=== PATIENT | female | born 1950 | race Caucasian/White ===

== ENCOUNTER → 2018-05-24 10:20 | Outpatient (CLI) | payer MEDICARE, OTHER, SELFPAY ==
--- NOTE | 2018-05-24 10:24 | MM_ITS ---
MM Dig screening mamm BI w/CAD CAD Screening COMPARISON: Digital mammograms with CAD 02/24/2017 and 02/05/2016 INDICATION: There is no personal or family history of breast cancer TECHNIQUE: Standard CC and MLO images were obtained. R2 CAD reviewed. FINDINGS: The breasts are composed primarily of fat with very minimal scattered fibroglandular densities in each breast. A few scattered benign-appearing calcifications in each breast. There is no suspicious lesion and no suspicious microcalcifications. IMPRESSION: Low density fatty breast parenchyma with no suspicious lesion seen BI-RADS Category: 2 Benign Finding(s) RECOMMENDED FOLLOW-UP: 1YR - 1 YEAR FOLLOW-UP (A letter has been sent to the patient regarding results of the study.)
== END ==
PROVIDERS: Family Provider Nurse Practitioner Family; PCP Nurse Practitioner Family; Visit Provider Nurse Practitioner Family
DX: Z12.31 Encounter for screening mammogram for malignant neoplasm of breast (principal)
CPT/HCPCS: 77067

== ENCOUNTER → 2018-10-15 08:41 | Outpatient (CLI) | payer MEDICARE, OTHER, SELFPAY ==
[2018-10-15 13:42] LABS: Basophils % 0.8 % (0.1-2.0); Eosinophils # 0.2 K/mm3 (0.0-0.4); Eosinophils % 4.1 % (0.1-12.0); Hematocrit 40.2 % (37.0-47.0); Hemoglobin 12.9 g/dL (12.2-16.2); Lymphocytes # 1.1 K/mm3 (0.7-4.5); Lymphocytes % 21.2 % (10-50); Mean Corpuscular Hemoglobin 30.5 pg (27.0-31.2); Mean Corpuscular Volume 95.3 fl (81-99); Mean Platelet Volume 9.1 fl (7.4-10.4); Monocytes # 0.2 K/mm3 (0.1-1.0); Monocytes % 4.1 % (1.7-9.3); Neutrophils # 3.5 K/mm3 (1.8-7.8); Neutrophils % 69.7 % (37.0-80.0); Platelet Count 288 K/mm3 (142-424); Red Blood Count 4.22 M/mm3 (4.20-5.40); Red Cell Distribution Width 13.1 % (11.5-17.5)
[2018-10-15 14:01] LABS: Alanine Aminotransferase 30 U/L (12-78); Albumin Level 3.7 gm/dL (3.4-5.0); Albumin/Globulin Ratio 1.1 (1.1-1.8); Alkaline Phosphatase 74 U/L (46-116); Anion Gap 15.4 mEq/L (5-15); Aspartate Amino Transferase 17 U/L (15-37); Bilirubin,Total 0.5 mg/dL (0.2-1.0); Blood Urea Nitrogen 13 mg/dL (7-18); Calcium 8.7 mg/dL (8.5-10.1); Carbon Dioxide 25 mmol/L (21.0-32.0); Chloride 103 mmol/L (98-107); Creatinine,Serum 0.88 mg/dL (0.55-1.02); Estimated Glomerular Filt Rate 64 ml/min (>60); GFR (African American) 78 ML/MIN (>60); Globulin 3.3 gm/dl (1.3-3.2); Glucose 105 mg/dL (74-106); Potassium 4.4 mmoL/L (3.5-5.1); Sodium 139 mmol/L (136-145); Thyroid Stimulating Hormone 0.24 uIU/ml (0.358-3.740)
== END ==
PROVIDERS: PCP Nurse Practitioner Family; Visit Provider Nurse Practitioner Family
DX: I47.1 Supraventricular tachycardia (principal); I49.3 Ventricular premature depolarization; I10 Essential (primary) hypertension
CPT/HCPCS: 36415; 80053; 84443; 85025

== ENCOUNTER → 2019-06-20 10:34 | Outpatient (CLI) | payer MEDICARE, OTHER, SELFPAY ==
--- NOTE | 2019-06-20 10:38 | MM_ITS ---
PROCEDURE: MM DIG SCREENING MAMM BI W/CAD Patient Age:68Y CLINICAL INDICATION: SCREENING 68-year-old. No hormones but no new complaints. Previous left breast biopsy/and needle biopsy 1 o'clock left breast COMPARISON: DIGMAMMDX MAMMOGRAM DX-POLYMERIZATION OVEN OPERATOR N/C from 02/05/2013 [facility] DIG MAMM-SCREEN MEG from 09/09/2013 [facility] DIG MAMM-SCREEN MEG from 02/05/2016 [facility] DIG MAMM-SCREEN MEG W/CAD from 02/24/2017 [facility] MM Dig screening mamm BI w/CAD from 05/24/2018 TECHNIQUE: Standard CC and MLO images were obtained. R2 CAD reviewed. Additional CC nipple profile views bilateral FINDINGS: Low-density breast diffuse fatty replacement. No areas of concern but no dominant or suspicious mass. But no suspicious calcifications but a few scattered small benign punctate calcifications again noted not of concern. Bilateral follow-up 1 year recommended IMPRESSION: Negative bilateral mammogram. No areas of concern Low-density breast with diffuse fatty replacement Bilateral follow-up 1 year recommended BI-RAD Category: 1 Negative FOLLOW-UP: 1YR 1 Year Follow-up (A letter has been sent to the patient regarding results of the study.) Dictated by: Robert Nichols MD 06/24/2019 11:01 Electronically signed by Robert Nichols MD in [place] 06/24/2019 11:01
== END ==
PROVIDERS: PCP Nurse Practitioner Family; Visit Provider Nurse Practitioner Family
DX: Z12.31 Encounter for screening mammogram for malignant neoplasm of breast (principal)
CPT/HCPCS: 77067

== ENCOUNTER → 2021-10-26 10:02 | Outpatient (CLI) | payer MEDICARE, SELFPAY ==
--- NOTE | 2021-10-26 10:13 | CT_ITS ---
FINAL REPORT CLINICAL HISTORY: WEIGHT LOSS, NAUSEA, EPIGASTRIC PAIN FOR 4 MONTHS FINDINGS: CT OF THE ABDOMEN AND PELVIS WITH CONTRAST Axial CT images of the abdomen and pelvis were obtained after the administration of oral and iv contrast. Coronal reformatted images were also obtained and reviewed.This study was performed with techniques to keep radiation doses as low as reasonably achievable (ALARA). Individualized dose reduction techniques using automated exposure control or adjustment of mA and/or kV according to the patient's size were employed. Abdomen: There is mild right lung base atelectasis. The heart is normal in size. There is mild fatty infiltration of the liver without evidence of mass or biliary ductal dilatation. The gallbladder is present. The spleen is unremarkable. No adrenal mass is present. The pancreas has an unremarkable appearance. The kidneys are normal, without evidence of mass or hydronephrosis. The aorta is normal in caliber. There is no free fluid or adenopathy. No mass or abnormal fluid collection is seen. Pelvis: The appendix is not seen. The urinary bladder is unremarkable. There is mild stranding of the small bowel mesentery which may represent mesenteric panniculitis or may be reactive. There is no evidence of mass or adenopathy. There is no evidence of bowel obstruction. IMPRESSION: Mild stranding of the small bowel mesentery which may represent mesenteric panniculitis or may be reactive. Mild fatty infiltration of the liver. Reviewed, Interpreted and Dictated by Janes Fair III, MD Transcribed by Elva Tello Authenticated by Janes Fair III, MD on 10/26/2021 12:52:06 PM [facility]
[2021-10-26 10:32] LABS: Blood Urea Nitrogen 11 mg/dl (7-17); Estimated Glomerular Filt Rate 83 ml/min (>60); GFR (African American) 100 ML/MIN (>60)
== END ==
PROVIDERS: PCP Nurse Practitioner Family; Visit Provider Internal Medicine Gastroenterology
DX: R10.13 Epigastric pain (principal); R11.0 Nausea; R63.4 Abnormal weight loss
CPT/HCPCS: 36415; 74177; 82565; 84520; Q9967

== ENCOUNTER 2024-07-04 14:21 | Outpatient (CLI) | payer MEDICARE, SELFPAY ==
--- NOTE | 2024-07-04 | MR_ITS ---
FINAL REPORT TECHNIQUE: Multiplanar MR without contrast CLINICAL HISTORY: LBP FINDINGS: Sagittal images show normal vertebral height. Alignment is normal. Marrow signal pattern is unremarkable. L1-2: Mild annular disc bulge with mild bilateral neuroforaminal narrowing. L2-3: Moderate annular disc bulge and facet arthropathy. There is moderate central canal stenosis and moderate bilateral neuroforaminal narrowing. L3-4: Mild annular disc bulge and mild facet arthropathy. There is mild central canal stenosis and neuroforaminal narrowing. L4-5: Mild annular disc bulge with moderate facet arthropathy. There is mild bilateral neuroforaminal narrowing. L5-S1: Mild annular disc bulge with moderate facet arthropathy. IMPRESSION: Multilevel degenerative changes with moderate canal stenosis and neuroforaminal narrowing most evident at L2-3. Reviewed, Interpreted and Dictated by Jackson Gutiérrez MD Transcribed by Tara Sandoval Authenticated and [facility]
== END 2024-07-04 23:59 | disposition home or self-care (01) ==
LOC: RAD 14:24
PROVIDERS: PCP Nurse Practitioner Family; Visit Provider Nurse Practitioner Family
DX: M51.16 Intervertebral disc disorders with radiculopathy, lumbar region (principal)
CPT/HCPCS: 72148

== ENCOUNTER 2024-07-18 15:00 | Outpatient (RCR) | payer MEDICARE, SELFPAY | END 2024-08-13 15:01 | disposition home or self-care (01) | LOC: PT 15:00 | PROVIDERS: PCP Nurse Practitioner Family; Visit Provider Nurse Practitioner Family | DX: M48.062 Spinal stenosis, lumbar region with neurogenic claudication (principal) | CPT/HCPCS: 97014; 97110; 97140; 97163; G0283 ==

== ENCOUNTER 2025-06-03 14:56 | Outpatient (CLI) | payer MEDICARE, SELFPAY ==
--- OUTSIDE RECORDS SUMMARY | 2025-05-08 10:30 | XMS_ITS | Encounter Summary ---
Author Organization [facility] Address [address] [place] [address] Care Team Providers Care Senior Oracle Database Administrator Name Role Phone Marcella Lowry APRN Primary Care Provider [phone] Reason for Visit * Reason Comments Follow-up Kenia is here for a follow up for ADDISON. Download obtained and reviewed with pt today. Kenia denied SOA, chest pain, swelling. Kenia states that she sometimes gets dizzy when she goes outside to take a walk. Reports no falls. Encounter Details Date Type Department Care Team (Late st Contact Info) Description 05/08/2025 10:30 AM EDT Office Visit [facility] [address] [phone] Melida Rebolledo APRN [address] [id number] PVC (premature ventricular contraction) (Primary Dx); Primary hypertension; ADDISON (obstructive sleep apnea) Social History Tobacco Use Types Packs/Day Years Used Date Smoking Tobacco: Never Passive Smoke Exposure: Past Smokeless Tobacco: Never Alcohol Use Standard Drinks/Week Comments No 0 (1 standard drink = 0.6 oz pur e alcohol) AUDIT-C Answer Date Recorded Q1: How often do you have a drink containing alcohol? Never 10/10/2024 Q2: How many drinks containi ng alcohol do you have on a typical day when you are drinking? Patient does not drink Q3: How often do you have si x or more drinks on one occasion? Never 10/10/2024 Abuse Screen Answer Date Recorded Feels Unsafe at Home or Work/School no 10/10/2024 Feels Threatened by Someone no 11/2024 Does Anyone Try to Keep You From Having Contact with Others or Doing Things Outside Your Home? no 10/10/2024 Physical Signs of Abuse Present no 10/10/2024 Housing Stability Answer Date Recorded Current Living Arrangements home 11/2024 Potentially Unsafe Housing Conditions Not on bekah e 10/10/2024 Disabilities Answer Date Recorded Difficulty Concentrating, Remembering or Making Decisions no 10/10/2024 Difficulty Managing Errands Independently no 10/10/2024 Comments No Sex and Gender Information Value Date Recorded Sex Assigned at Not on file Legal Sex Female 1:37 PM EST Gender Identity Not on file Sexual Orientation Not on file Occupation Industry Job Start Date Job End Date [employer] Not on file Not on file Not on file documented as of this encounter Last Filed Vital Signs Vital Sign Reading Time Taken Comments Blood Pressure 132/72 05/08/2025 10:03 AM EDT Pulse 65 05/08/2025 10:03 AM EDT Temperature 36.2 C (97.1 F) 05/08/2025 10:03 AM EDT Respiratory Rate - - Oxygen Saturation 96% 05/08/2025 10:03 AM EDT Inhaled Oxygen Concentration - - Weight 108 kg (237 lb 12.8 oz) 05/08/2025 10:03 AM EDT Height 165.1 cm (5' 5 ) 05/08/2025 10:03 AM EDT Body Mass Index 39.57 05/08/2025 10:03 AM EDT documented in this encounter Progress Notes * Melida Rebolledo, DUONG - 05/08/2025 12:08 PM EDTAssociated Problem(s): ADDISON (obstructive sleep apnea) No mild sleep apnea. AHI is 11. She is on CPAP therapy. Download reviewed with good control and good compliance. She is benefiting from PAP therapy. We plan to continue PAP therapy. Noted that she is on a DreamStation #2. She is aware of the FDA warning of overheating. She is monitoring for this and at this time she has no concerns of device overheating. She has contacted her DME and they say that she is due for a new device in the spring 2026. She has a current prescription to her DME of her choice for her PAP supplies. Follow-up on mild sleep apnea on CPAP therapy in 6 months or sooner for any ADDISON or PAP concerns. * Melida Rebolledo APRN - 05/08/2025 12:06 PM EDTAssociated Problem(s): Primary hypertension Blood pressure today 132/72. This is well-controlled. Reports she has not been checking her blood pressure at home recently. She is currently on valsartan 160 mg daily and metoprolol succinate but she is only taken a half a dose of this daily. Blood pressure is well-controlled. She is having a mild symptom of dizziness when she starts out walking in the mornings. She said that bending over in the garden and standing up does not make it any worse. She denies any syncope. We did discuss that both metoprolol and diltiazem have a dizzy side effect and we could give consideration to lowering the valsartan in half as this medication was increased last year due to having high blood pressure. So if we lowered the valsartan then we might need to consider adding on a third blood pressure medicine and following. She reports this is a mild concern right now she is going to follow this symptom if it gets worse and she wants to change medicine she will let us know * Melida Rebolledo APRN - 05/08/2025 12:04 PM EDTAssociated Problem(s): PVC (premature ventricular contraction) She has a known history of PVC ablation 02/11/2019. She is on metoprolol succinate 25 mg she is taken a half a tablet daily and in addition she is on diltiazem 160 mg daily. She denies any palpitations. Symptoms are stable. Continue current medications * Melida Rebolledo APRN - 05/08/2025 10:30 AM EDT Images from the original note were not included. [facility] Provider Note Date: 05/08/2025 Name: Kenia Ramírez : 1950 PCP: Marcella Lowry APRN Chief Complaint Patient presents with Follow-up Kenia is here for a follow up for ADDISON. Download obtained and reviewed with pt today. Kenia denied SOA, chest pain, swelling. Kenia states that she sometimes gets dizzy when she goes outside to take awalk. Reports no falls. Subjective History of Present Illness Kenia Ramírez is a 74 y.o. female who presents today for scheduled for a 6 months for her historyof PVC Ablation, HTN and ADDISON. She reports she talked to her [employer] company and she has are not due for a new Pap replacement until spring. She reports her current device is functioning okay. And she watches it and she does not have any complaints on Pap function to report today. She has been getting out every morning and working her garden. She walks out and then she is busy, bending down and standing up. She notices that she gets a bit dizzy with walking out into the gardenthis exercise. She reports it has been hot but she goes early when it is not too hot. She reports the dizziness resolves on its own. She does report that after she has worked hard and does her morning chores and her morning gardening but by afternoon she is done for the day. She reports she is justtired in the afternoons. We discussed that her medications metoprolol and diltiazem both lower her heart rate and lower the blood pressure. And last year she had to have an increase in the diltiazem because her blood pressure had been up. We discussed that both of these medications may have a side effect of making her feellightheaded dizzy and we discussed that we could change or adjust blood pressure medications. She re ports that it is a mild complaint at this time and that she will just continue to watch it if it gets worse she will check back and consider adjusting blood pressure medications. I told her that we would consider-the diltiazem and then adding a third blood pressure medicine. Sleep and Cardiac History: 1.[facility] 11/09/2018 [facility] Left heart cath 10/10/2024 impression: ?? Normal coronary arteries ?? Normal LVEF 2. PVC's s/p ablation 02/11/2019 on BB, Monitor 04/28/2021/ EKG RBBB ( present 02/12/19) 3.ADDISON AHI 11 on 11/29/2013 Current ADDISON therapy CPAP 6-12cm 4. ECHO 03/04/2021 EF 60-65% -Echo 09/12/2024 summary: ?? Left ventricular systolic function is normal. Left ventricular ejection fraction appears to be 66 - 70%. ?? Left ventricular wall thickness is consistent with borderline concentric hypertrophy. ?? Left ventricular diastolic function is consistent with (grade I) impaired relaxation. ?? There is moderate calcification of the aortic valve mainly affecting the non- coronary, left coronary and right coronary cusp(s). Estimated right ventricular systolic pressure from tricuspid regurgitation is normal (<35 mmHg). 5. Bilateral carotid stensos - mild 2015 -09/26/2024 preliminary findings showing: ?? Right internal carotid artery demonstrates normal flow without evidence of hemodynamically significant stenosis. ?? Left internal carotid artery demonstrates normal flow without evidence of hemodynamically significant stenosis. ?? Normal bilateral vertebral artery doppler flow. Coexisting allergies and asthma Reports Denies Chest Pain [] [x] Shortness of Air [] [x] Palpitations [] [x] Edema [] [x] Dizziness [x] [] Syncope [] [x] Current mask used is nasal cushion Device Functioning Well: Yes but noted she is on a DreamStation #2. She is aware of the FDA warningof overheating on this device. We have checked with her DME company and she is not due for replacement device until December 2025. Patient reports that she will watch this device closely and report any concerns. Mask Fit Comfortable: Yes Air Flow Comfortable: Yes DME Helpful for Supplies: Yes Sleep is rested: Yes Device Download: Allergies Allergen Reactions Cefdinir Unknown - Low Severity Pravastatin Rash Sulfa Antibiotics Rash Current Outpatient Medications: albuterol sulfate HFA 108 (90 Base) MCG/ACT inhaler, Inhale 2 puffs Every 6 (Six) Hours As Needed for Shortness of Air., Disp: , Rfl: aspirin 81 MG EC tablet, Take 1 tablet by mouth Daily., Disp: , Rfl: donepezil (ARICEPT) 5 MG tablet, Take 1 tablet by mouth Every Night., Disp: , Rfl: fluticasone (FLONASE) 50 MCG/ACT nasal spray, Administer 2 sprays into the nostril(s) as directed by provider Daily., Disp: , Rfl: levocetirizine (XYZAL) 5 MG tablet, Take 1 tablet by mouth Every Evening., Disp: , Rfl: levothyroxine (SYNTHROID, LEVOTHROID) 100 MCG tablet, TAKE 1 TABLET BY MOUTH EVERY DAY ON AN EMPTY STOMACH 30 MINUTES BEFORE BREAKFAST, Disp: , Rfl: metoprolol succinate XL (TOPROL-XL) 25 MG 24 hr tablet, Take 1 tablet by mouth Daily. (Patient taking differently: Take 1 tablet by mouth Daily. 1/2 TABLET), Disp: 90 tablet, Rfl: 3 montelukast (SINGULAIR) 10 MG tablet, Take 1 tablet by mouth Every Morning., Disp: , Rfl: valsartan (DIOVAN) 160 MG tablet, Take 1 tablet by mouth Daily. for blood pressure, Disp: 90 tablet, Rfl: 3 ezetimibe (ZETIA) 10 MG tablet, Take 1 tablet by mouth Daily., Disp: , Rfl: hydrocortisone 1 % cream, Apply 1 Application topically to the appropriate area as directed 2 (Two)Times a Day As Needed. (Patient not taking: Reported on 05/08/2025), Disp: , Rfl: Past Medical History: Diagnosis Date Arthritis Asthma Carotid stenosis Cataracts, bilateral CPAP (continuous positive airway pressure) dependence Disease of thyroid gland Hypercholesterolemia Hyperlipidemia Hypertension Hypothyroidism Neuropathy Palpitations PVC's (premature ventricular contractions) Sleep apnea with use of continuous positive airway pressure (CPAP) BASELINE AHI 11-INTOLERANT Wears glasses Past Surgical History: Procedure Laterality Date APPENDECTOMY BREAST LUMPECTOMY CARDIAC CATHETERIZATION N/A 11/09/2018 Procedure: Left Heart Cath; Surgeon: Anand Bangura MD; Location: [facility]; Service: Cardiovascular CARDIAC CATHETERIZATION N/A 10/10/2024 Procedure: Left Heart Cath - Right radial access; Surgeon: Anand Bangura MD; Location: [facility]; Service: Cardiovascular; Laterality: N/A; CARDIAC ELECTROPHYSIOLOGY PROCEDURE N/A 02/11/2019 Procedure: PVC Ablation - [facility] Surgeon: Kayode Mayers MD; Location: [facility]; Service: Cardiology COLONOSCOPY 2017 Family History Problem Relation Age of Onset Diabetes Mother Hypertension Mother Diabetes Father Hypertension Father No Known Problems Brother No Known Problems Brother No Known Problems Brother Alcohol abuse Brother Social History Socioeconomic History Marital status: Number of children: 2 Tobacco Use Smoking status: Never Passive exposure: Past Smokeless tobacco: Never Vaping Use Vaping status: Never Used Passive vaping exposure: Yes Substance and Sexual Activity Alcohol use: No Drug use: No Sexual activity: Defer Objective Vital Signs: BP 132/72 (BP Location: Right arm, Patient Position: Sitting, Cuff Size: Adult) Pulse 65 Temp 97.1 ??F (36.2 ??C) (Infrared) Ht 165.1 cm (65 ) Wt 108 kg (237 lb 12.8 oz) SpO2 96% BMI 39.57 kg/m?? Estimated body mass index is 39.57 kg/m?? as calculated from the following: Height as of this encounter: 165.1 cm (65 ). Weight as of this encounter: 108 kg (237 lb 12.8 oz). Physical Exam Constitutional: Appearance: Normal appearance. She is well-developed. HENT: Head: Normocephalic and atraumatic. Nose: Nose normal. Mouth/Throat: Mouth: Mucous membranes are moist. Eyes: General: No scleral icterus. Pupils: Pupils are equal, round, and reactive to light. Neck: Vascular: No carotid bruit. Cardiovascular: Rate and Rhythm: Normal rate and regular rhythm. Pulses: Normal pulses. Radial pulses are 2+ on the right side and 2+ on the left side. Dorsalis pedis pulses are 2+ on the right side and 2+ on the left side. Posterior tibial pulses are 2+ on the right side and 2+ on the left side. Heart sounds: Normal heart sounds. No murmur heard. Pulmonary: Effort: Pulmonary effort is normal. Breath sounds: Normal breath sounds. No wheezing or rhonchi. Abdominal: General: Bowel sounds are normal. Musculoskeletal: Right lower leg: No edema. Left lower leg: No edema. Skin: General: Skin is warm and dry. Capillary Refill: Capillary refill takes less than 2 seconds. Coloration: Skin is not cyanotic. Nails: There is no clubbing. Neurological: Mental Status: She is alert and oriented to person, place, and time. Motor: No weakness. Gait: Gait normal. Psychiatric: Mood and Affect: Mood normal. Behavior: Behavior normal. Behavior is cooperative. Thought Content: Thought content normal. Cognition and Memory: Memory normal. The following data was reviewed by: Melida Rebolledo APRN on 05/08/2025: PAP download reviewed: 30-day download as above. I have reviewed and interpreted the data on the download at today's visit Assessment and Plan Diagnoses and all orders for this visit: 1. PVC (premature ventricular contraction) (Primary) Assessment & Plan: She has a known history of PVC ablation 02/11/2019. She is on metoprolol succinate 25 mg she is taken a half a tablet daily and in addition she is on diltiazem 160 mg daily. She denies any palpitations. Symptoms are stable. Continue current medications 2. Primary hypertension Assessment & Plan: Blood pressure today 132/72. This is well-controlled. Reports she has not been checking her blood pressure at home recently. She is currently on valsartan 160 mg daily and metoprolol succinate but she is only taken a half a dose of this daily. Blood pressure is well-controlled. She is having a mild symptom of dizziness when she starts out walking in the mornings. She said that bending over in the garden and standing up does not make it any worse. She denies any syncope. We did discuss that both metoprolol and diltiazem have a dizzy side effect and we could give consideration to lowering the valsartan in half as this medication was increased last year due to having high blood pressure. So if we lowered the valsartan then we might need to consider adding on a third blood pressure medicine and following. She reports this is a mild concern right now she is going to follow this symptom if it gets worse and she wants to change medicine she will let us know 3. ADDISON (obstructive sleep apnea) Assessment & Plan: No mild sleep apnea. AHI is 11. She is on CPAP therapy. Download reviewed with good control and good compliance. She is benefiting from PAP therapy. We plan to continue PAP therapy. Noted that she is on a DreamStation #2. She is aware of the FDA warning of overheating. She is monitoring for this and at this time she has no concerns of device overheating. She has contacted her DME and they say that she is due for a new device in the spring 2025. She has a current prescription to her DME of her choice for her PAP supplies. Follow-up on mild sleep apnea on CPAP therapy in 6 months or sooner for any ADDISON or PAP concerns. Recommendations: Report if any new/changing symptoms immediately Follow Up Return in about 6 months (around 11/08/2025) for PVC/HTN/ADDISON . Patient was given instructions and counseling regarding her condition or for health maintenance advice. Please see specific information pulled into the AVS if appropriate. documented in this encounter Plan of Treatment Upcoming Encounters Date Type Department Care Team (Late st Contact Info) Description 11/06/2025 10:30 AM EST Office Visit [facility] C[facility] [address] [place] [phone] Antoinette Jones APRN [address] [place] [address] [place] [address] documented as of this encounter Visit Diagnoses Diagnosis PVC (premature ventricular contraction)- Primary Other premature beats Primary hypertension Unspecified essential hypertension ADDISON (obstructive sleep apnea) Obstructive sleep apnea (adult) (pediatric) documented in this encounter Care Teams Senior Oracle Database Administrator Relationship Specialty Start Date End Date Marcella Lowry APRN [address] [place] [id number] PCP - General Nurse Practitioner 11/09/18 documented as of this encounter
--- OUTSIDE RECORDS SUMMARY | 2025-06-03 14:57 | XMS_ITS | Clinical Summary ---
Author Organization Healthcare Address [address] [place] [address] Care Team Providers Care Tare Worker Name Role Phone Christopher Asif MD Primary Care Provider [phone] Family History Medical History Relation Name Comments Cardiac disorder Other 1 Stroke Other 2 Diabetes Other 3 Hypertension Other 4 Other cancer Other 5 Relation Name Status Comments Other 1 Other 2 Other 3 Other 4 Other 5 Social History Tobacco Use Types Packs/Day Years Used Date Smoking Tobacco: Never Assessed Comments Unknown Sex and Gender Information Value Date Recorded Sex Assigned at Not on file Legal Sex Female 6:27 PM EDT Gender Identity Not on file Sexual Orientation Not on file Last Filed Vital Signs Vital Sign Reading Time Taken Comments Blood Pressure - - Pulse - - Temperature - - Respiratory Rate - - Oxygen Saturation - - Inhaled Oxygen Concentration - - Weight 117 kg (257 lb 0.2 oz) 03/31/2017 10:34 A M EDT Height 160 cm (5' 3 ) 03/31/2017 10:34 AM EDT Body Mass Index 45.53 03/31/2017 10:34 AM EDT Plan of Treatment Not on file Care Teams Tare Worker Relationship Specialty Start Date End Date Christopher Asif MD [address] [place] [address] PCP - General 02/19/21
--- NOTE | 2025-06-03 14:58 | MR_ITS ---
FINAL REPORT TECHNIQUE: Multiplanar and multisequence imaging of the lumbar spine was obtained without contrast. CLINICAL HISTORY: SPINAL STENOSIS PAIN IN LOWER BACK BURNING SENSTATION BILATERAL LEGS COMPARISON: 07/04/2024 FINDINGS: There is normal alignment of the lumbar vertebral bodies. Vertebral body height is preserved. The spinal cord ends at the level of L1. There is normal signal intensity within the substance of the distal spinal cord. No acute bone marrow edema or pathologic marrow replacement. No acute paraspinal abnormality is identified. L1-2: Annular disc bulge with degenerative endplate changes and facet osteoarthropathy. There is no significant central canal stenosis. There is mild right and moderate to severe left neuroforaminal narrowing. L2-3: Annular disc bulge with degenerative endplate changes and facet osteoarthropathy. There is mild to moderate central canal stenosis. There is mild right and moderate to severe left neuroforaminal narrowing. L3-4: Annular disc bulge with degenerative endplate changes and facet osteoarthropathy. There is mild central canal stenosis. There is mild, left greater than right neuroforaminal narrowing. L4-5: Annular disc bulge with degenerative endplate changes and facet osteoarthropathy. There is mild to moderate, right greater than left neuroforaminal narrowing. L5-S1: No focal disc herniation or central canal stenosis. There is narrowing of the far right lateral foramen by osteophytes. IMPRESSION: Multilevel degenerative disc disease, stable from prior exam. Reviewed, Interpreted and Dictated by Ana Fitzpatrick MD Transcribed by Tara Sandoval Authenticated and [facility]
--- OUTSIDE RECORDS SUMMARY | 2025-06-03 14:58 | XMS_ITS | Encounter Summary ---
Author Organization [facility] Address [address] [place] [address] Care Team Providers Care Top And Seat Cover Fitter Name Role Phone Marcella Lowry APRN Primary Care Provider [phone] Encounter Details Date Type Department Care Team (Latest Contact Info) Description 05/08/2025 Travel Social History Tobacco Use Types Packs/Day Years [...] on file documented as of this encounter Plan of Treatment Upcoming Encounters Date Type Department Care Team (Late st Contact Info) Description 11/06/2025 10:30 AM EST Office Visit [facility] [address] [place] [address] Antoinette Jones, TUCK POINTER [address] [place] [address] [place] [address] documented as of this encounter Visit Diagnoses Not on filedocumented in this encounter Care Teams Top And Seat Cover Fitter Relationship Specialty Start Date End Date Marcella Lowry APRN [facility] [place], [place] [id number] PCP - General Nurse Practitioner 11/09/18 documented as of this encounter
--- OUTSIDE RECORDS SUMMARY | 2025-06-03 14:58 | XMS_ITS | Clinical Summary ---
Author Organization [facility] Address [address] [place] [address] Care Team Providers Care Box Packer Name Role Phone Marcella Lowry APRN Primary Care Provider [phone] Allergies Active Allergy Reactions Criticality Noted Date Comments Cefdinir Unknown - Low Severity Low 08/11/2009 Pravastatin Rash Low 11/09/2018 Sulfa Antibiotics Rash Low 11/09/2018 Medications aspirin 81 MG EC tablet Take 1 tablet by mouth Daily. Active levocetirizine (XYZAL) 5 MG tablet Take 1 tablet by mouth Every Evening. Active metoprolol succinate XL (TOPROL-XL) 25 MG 24 hr tablet Take 1 tablet by mouth Daily. 90 tablet 3 9 Active Additional Information Patient taking differently:25 mg Oral Daily,1/2 TABLET, Reported on 05/08/2025 albuterol sulfate HFA 108 (90 Base) MCG/ACT inhaler Inhale 2 puffs Every 6 (Six) Hours As Needed for Shortness of Air. Active fluticasone (FLONASE) 50 MCG/ACT nasal spray Administer 2 sprays into the nostril(s) as directed by provider Daily. Active levothyroxine (SYNTHROID, LEVOTHROID) 100 MCG tablet TAKE 1 TABLET BY MOUTH EVERY DAY ON AN EMPTY STOMACH 30 MINUTES BEFORE BREAKFAST 3 Active montelukast (SINGULAIR) 10 MG tablet Take 1 tablet by mouth Every Morning. 4 Active hydrocortisone 1 % cream Apply 1 Application topically to the appropriate area as directed 2 (Two) Times a Day As Needed. 4 Active donepezil (ARICEPT) 5 MG tablet Take 1 tablet by mouth Every Night. 4 Active ezetimibe (ZETIA) 10 MG tablet Take 1 tablet by mouth Daily. 4 Active valsartan (DIOVAN) 160 MG tabletIndication s:Primary hypertension Take 1 tablet by mouth Daily. for blood pressure 90 tablet 3 5 Active Active Problems Problem Noted Date Diagnosed Date Bilateral carotid artery stenosis 09/26/2024 Assessment & Plan (09/26/2024 5:55 PM EST): Diagnosed with bilateral mild carotid stenosis in 2016 She had not had any follow-up studies. She completed a bilateral carotid duplex today and the preliminary findings are reviewed in detail showing bilateral internal carotid arteries with normal flow without evidence of significant stenosis. She has normal bilateral vertebral arterial Doppler flow. Abnormal nuclear stress test 09/26/2024 Assessment & Plan (09/26/2024 5:54 PM EST): 09/18/2024 nuclear stress test showed: -Normal nuclear EF 58% with stress -Wall motion showed anterior hypokinesis with stress -Evidence of moderate sized anterior area of ischemia -Intermediate risk study She has coexisting new complaints over about the last 4 to 6 weeks chest pain, shortness of air and generalized weakness. She has coexisting hyperlipidemia that has not been treated as she has been intolerant to pravastatin and Zetia. We discussed in detail today her nuclear stress test and discussed options of further evaluation with coronary CTA versus left heart cath. Patient verbalized that she would like to move forward with left heart cath as she would like to have definitive diagnosis and treatment. Plan: Left heart cath Risk and benefits discussed including but not limited to bleeding infection and perforation and kidney function with IV contrast. Follow-up after cath to review the findings Precordial pain 09/12/2024 Assessment & Plan (09/26/2024 5:57 PM EST): She describes a complaint of a chest pressure that is from her neck down across to her chest wall. Reports that this pain has been ongoing and persistent for over 1 month. Blood pressure had been elevated and her medication was increased. Blood pressure is improved but not at goal. She has completed an echocardiogram, and nuclear stress test for further evaluation. Noted her nuclear stress test was an intermittent risk study Plan: Left heart cath for further evaluation Follow-up after testing to review the findings Assessment & Plan (09/12/2024 6:09 PM EST): She describes a complaint of chest pressure that is from her neck and down across to her chest wall. She reports the pain has been constant for 2 weeks. Noted that her blood pressure has been elevated. Plan: Encouraged to ER if worse. Check an echocardiogram Check a stress test for risk stratification for CAD as she has CAD risk of hyperlipidemia not on statin, hypertension Pure hypercholesterolemia 09/12/2024 Assessment & Plan (09/26/2024 6:07 PM EST): Labs 07/11/2024 showing: Total cholesterol 239 Triglycerides 122 HDL 50 LDL 167. She has been on pravastatin and Zetia as she has been intolerant to both of these medications and she has stopped all cholesterol treatment. We discussed this as a risk for CAD. Her stress test is intermediate risk. We will move forward with left heart cath for further evaluation and treatment If she is found to have coronary artery disease then we will move forward with Repatha as a cholesterol-lowering agent Assessment & Plan (09/12/2024 6:16 PM EST): Labs 07/11/2024 show cholesterol is elevated: Total cholesterol 239 Triglycerides 122 HDL 50 LDL 167 She reports she has been on statin in the past. She had problems with muscular skeletal and joint aches and pains on statin and it was stopped. We discussed today consideration for other treatment such as Zetia or possibly a Repatha We will plan stress testing and further evaluation as this is a CAD risk ADDISON (obstructive sleep apnea) 12/22/2022 Assessment & Plan (05/08/2025 12:08 PM EDT): No mild sleep apnea. AHI is 11. [...] sooner for any ADDISON or PAP concerns. Assessment & Plan (10/31/2024 5:10 PM EST): Baseline AHI is 11. This is mild sleep apnea. She is on CPAP therapy. Download reviewed with good control and good compliance. She is benefiting from PAP therapy. She is wondering if her PAP device is due for replacement as she is currently using a DreamStation #2 that has an FDA warning of overheating. She is wanting to move off of this device as soon as possible. Prescription to DME of her choice for new CPAP and supplies. Follow-up when she has had her new machine more than 1 month but less than 3 months. Assessment & Plan (02/08/2024 6:31 PM EDT): Baseline AHI is 11. This is mild sleep apnea. She is on CPAP therapy. Download reviewed with good control and good compliance. She is benefiting from PAP therapy with plan to continue PAP therapy. Noted that at her last visit we had discussed the age of her original device and the patient thought that it was 5 years old. Unfortunately after discussing with the DME company the original device is only 3 years old. We discussed continuing to use the DreamStation #2, following all safety precautions and patient is agreeable. She will monitor her device and she will return for any concerns. Plan follow-up in about 10 months. Annual follow-up ADDISON. Assessment & Plan (12/07/2023 5:12 PM EST): Baseline AHI is 11. This is mild sleep apnea. She is on CPAP therapy. Download reviewed with good control and good compliance. She is benefiting from CPAP therapy and we plan to continue CPAP therapy. Noted that her device is greater than 5 years old and she wishes to have it replaced. Prescription to DME of patient's choice for auto CPAP 6 to 12 cm and CPAP supplies. Plan follow-up when on new device about 2 months for a 31 to 90-day compliance visit and review download for control and compliance. Assessment & Plan (03/02/2023 11:37 AM EDT): Baseline AHI 11. This is mild sleep apnea. She has restarted PAP therapy and mask and airflow are comfortable. CPAP download is reviewed with good control and good compliance. She is benefiting from PAP therapy and we plan to continue PAP therapy. She denies any problems with nausea with CPAP and nasal mask. Her current supply order was sent in in December 2022. We will plan on seeing her back in about 9 months for continued follow-up. Assessment & Plan (12/22/2022 6:40 PM EDT): Baseline AHI is 11 and this is mild sleep apnea. At her last visit a titration study was discussed but it was never completed. We had a long discussion about CPAP therapy today and she is very willing to restart PAP therapy. She reports that she was having nausea after CPAP use. She had been in a full facemask. We discussed that she could try a nasal mask and keeping her mouth closed should decrease the amount of air that she is swallowing. Supply order to the DME of her choice for a new mask and restart PAP therapy. Palpitations 12/22/2022 Assessment & Plan (12/22/2022 6:41 PM EDT): She reports that her palpitations are stable. She is on the beta-holly metoprolol. Primary hypertension 06/25/2019 Assessment & Plan (05/08/2025 12:06 PM EDT): Blood pressure today 132/72. This is well-controlled. [...] change medicine she will let us know Assessment & Plan (10/31/2024 5:08 PM EST): Blood pressure today 128/68. This is well-controlled. She is currently on valsartan 160 mg and metoprolol succinate 25 mg taking half a dose. Plan to continue current medication regimen. She is encouraged to check her blood pressure at home and bring her logs to follow-up Assessment & Plan (09/26/2024 6:01 PM EST): Higher to her last visit her blood pressure had been elevated 200/100. Medication valsartan has been increased from 40 mg to she is now on: -valsartan 160 mg. -Metoprolol succinate 25 mg taking one half of a dose Checking blood pressure at home and blood pressure log is reviewed showing that she is had some significant improvement in blood pressure but still suboptimal. September 21, 2024 2 hours after blood pressure medication 136/91 September 22, 2024 2 hours after blood pressure medication 142/76 September 23, 2024 2 hours after blood pressure medication 158/80 September 24, 2024 2 hours after blood pressure medication 77/56 -noted very low September 25, 2024 before blood pressure medication 135/85 September 26, 2024 blood pressure before medication 126/84 and blood pressure 2 hours after medication 154/86. Again blood pressure has improved. Planning further evaluation with left heart cath Will continue medication at current dose and continue home blood pressure log. Assessment & Plan (09/12/2024 6:07 PM EST): Patient reports that blood pressure was elevated systolic blood pressure near 200 and diastolic blood pressure near 100. She reports she was seen by PCP who increased her blood pressure medication. She was on valsartan 40 mg. It was increased to 80 mg. Blood pressure reading today 146/84. This is suboptimal control. Blood pressure readings at home have been showing systolic blood pressure 140- 170 and diastolic blood pressure 80-90. Noted that blood pressure has improved on increased dose of valsartan. Plan: Continue metoprolol succinate 25 mg noted she is taking one half of dose per day Increase valsartan to 160 mg/day Check blood pressure at home twice daily including before blood pressure medication and 2 hours after blood pressure medication Short follow-up after echo and stress test to reevaluate blood pressure PVC (premature ventricular contraction) 01/16/20 Overview (01/15/2019): Added automatically from request for surgery [id number] Assessment & Plan (05/08/2025 12:04 PM EDT): She has a known history of PVC ablation 02/11/2019. She is on metoprolol succinate 25 mg she is taken a half a tablet daily and in addition she is on diltiazem 160 mg daily. She denies any palpitations. Symptoms are stable. Continue current medications Assessment & Plan (12/07/2023 5:13 PM EST): She has a history of a PVC ablation 02/11/2019. She is on metoprolol succinate 25 mg daily. She denies any palpitations. Symptoms are stable. Abnormal stress test 11/05/2018 Overview (11/05/2018): Added automatically from request for surgery [id number] Resolved Problems Problem Noted Date Diagnosed Date Resolved Date Shortness of breath 09/12/2024 05/08/20 Assessment & Plan (10/31/2024 5:07 PM EST): She reports that her symptom of shortness of air with exertional activity has not increased. It has been stable. We discussed that this may be coexisting asthma and allergies as her heart cath shows normal coronary arteries. Plan: Follow-up with providers who are managing her allergies and asthma. Patient reports she has scheduled upcoming appointments with both of them in the near future. Assessment & Plan (09/26/2024 6:03 PM EST): She reports symptom of shortness of air with exertional activity that has been increased now for over a month. She has been using her inhaler as instructed and she reports this helps wheezing but not shortness of air She has checked an echocardiogram and this is reviewed showing EF within normal limits, grade 1 diastolic dysfunction, borderline LVH and a moderate calcification of the aortic valve but no regurgitation or stenosis. She has completed a chest x-ray that showed no acute process She has completed a nuclear stress test that is an intermediate risk study Plan: Left heart cath Follow-up to review the findings Assessment & Plan (09/12/2024 6:04 PM EST): She reports symptom of shortness of air with exertional activity this is a increased complaint Plan: Check a chest x-ray Use inhaler as instructed Check echocardiogram Check a stress test To ER if symptoms increase or worsen Weakness generalized 09/12/2024 Assessment & Plan (09/26/2024 6:05 PM EST): She reports generalized weakness and fatigue. It has been ongoing now for over a month. 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 She reports it was not even exertional activity. She was mostly watching her brother work. She has completed labs CBC CMP and TSH within normal limits. Noted her cholesterols are elevated She has completed echo that has been reviewed EF within normal limits and borderline LVH and grade 1 diastolic dysfunction and moderate calcification of the aortic valve without stenosis or regurgitation. Do not think anything on the echo explains this weakness She has a stress test that is intermittent risk We will move forward with left heart cath and follow-up after testing Assessment & Plan (09/12/2024 6:03 PM EST): Generalized weakness and fatigue. She reports this has been ongoing now for about a month. He had labs completed in July reviewed a CBC, CMP, TSH and fasting lipids. CBC CMP and TSH within normal limits and noted fasting lipids are elevated. Plan: Check an echo Check a stress test Follow-up to review the findings To the ER if symptoms worse Hypersomnia, unspecified 12/22/2022 Assessment & Plan (12/22/2022 6:41 PM EDT): She reports that she is tired and that she is napping daily for 45 minutes to 1 hour. She reports the 1 hour nap does make her feel refreshed. She is willing to restart PAP therapy and we will reevaluate her excessive daytime sleepiness to see if treating this sleep apnea improves this. Encounters Date Type Department Care Team Description 05/12/2025 Telephone [facility] [address] [phone] Antoinette Jones APRN 05/08/2025 10:30 AM EDT Office Visit [facility] [address] [place] [address] Melida Rebolledo APRN PVC (premature ventricular contraction) (Primary Dx); Primary hypertension; ADDISON (obstructive sleep apnea) 05/08/2025 Travel 03/28/2025 Telephone [facility] [address] [address] Antoinette Jones APRN from Last 3 Months Family History Medical History Relation Name Comments No Known Problems Brother 1 No Known Problems Brother 2 No Known Problems Brother 3 Alcohol abuse Brother 4 Diabetes Father Hypertension Father Diabetes Mother Hypertension Mother Relation Name Status Comments Brother 1 Alive Brother 2 Alive Brother 3 Alive Brother 4 (Age 55) Father (Age 87) Mother (Age 81) Social History Tobacco Use Types Packs/Day Years Used Date Smoking Tobacco: Never Passive Smoke Exposure: Past Smokeless Tobacco: Never Tobacco Cessation:Counseling Given: Not Answered Alcohol Use Standard Drinks/Week Comments No 0 [...] file Not on file Not on file Last Filed Vital Signs Vital Sign Reading Time Taken Comments Blood Pressure 132/72 05/08/2025 10:03 AM EDT Pulse 65 05/08/2025 10:03 AM EDT Temperature 36.2 C (97.1 F) 05/08/2025 10:03 AM EDT Respiratory Rate 14 10/10/2024 11:01 AM EST Oxygen Saturation 96% 05/08/2025 10:03 AM EDT Inhaled Oxygen Concentration - - Weight 108 kg (237 lb 12.8 oz) 05/08/2025 10:03 AM EDT Height 165.1 cm (5' 5 ) 05/08/2025 10:03 AM EDT Body Mass Index 39.57 05/08/2025 10:03 AM EDT Plan of Treatment Upcoming Encounters Date Type Department Care Team (Late st Contact Info) Description 11/06/2025 10:30 AM EST Office Visit [facility] [address] [place] [address] Antoinette Jones, COMMUNICATIONS EQUIPMENT OPERATOR [address] [place] [address] [place] [address] Health Maintenance Due Date Last Done Comments DXA SCAN 1950 TDAP/TD VACCINES (1 - Tdap) 1970 COLOGUARD 1996 COLON CANCER SCREENING 5 YEA R SIGMOIDOSCOPY 1996 COLONOSCOPY [address] CANCER SCREENING 1996 CT COLONOGRAPHY 1996 FECAL OCCULT BLOOD TEST 1996 FIT Testing (1 year) 1996 ZOSTER VACCINE (1 of 2) 2001 ANNUAL WELLNESS VISIT 11/08/2018 HEPATITIS C SCREENING 11/08/2018 COVID-19 Vaccine (6 - 2023-2 5 season) 2025 08/10/2024, 08/02/2023, 08/27/2021, Additional history exists INFLUENZA VACCINE 07/09/2025 08/03/2024, , 07/25/2023, Additional history exists LIPID PANEL 10/10/2025 10/10/2024, 11/09/2018 MAMMOGRAM 05/23/2026 05/23/2024, 05/09, 01/18/2023, Additional history exists Pneumococcal Vaccine 50+ Completed 09/17/2018, 08/09 Procedures Procedure Name Priority Date/Time Associated Diagnosis Comments SCANNED - PULMONARY RESULTS 05/08/2025 LIPID PANEL STAT 10/10/2024 8:07 AM EST from Last 3 Months or Most Recently Relevant to Health Maintenance Results * Pulmonary Results Scan (05/08/2025) Melida Rebolledo COMMUNICATIONS EQUIPMENT OPERATOR PFT ORDERABLES Final R esult * (ABNORMAL) Lipid Panel (10/10/2024 8:07 AM EST) Total Cholesterol 186 0 - 200 mg/dL 10/10/2024 8:53 AM EST [facility] Triglycerides 130 0 - 150 mg/dL 10/10/2024 8:53 AM EST [facility] HDL Cholesterol 48 40 - 60 mg/dL 10/10/2024 8:53 AM EST [facility] LDL Cholesterol 115(H) 0 - 100 mg/dL 10/10/2024 8:53 AM EST [facility] VLDL Cholesterol 23 5 - 40 mg/dL 10/10/2024 8:53 AM EST [facility] LDL/HDL Ratio 2.33 10/10/2024 8:53 AM EST [facility] Blood Line / Unknown 10/10/2024 8: 07 AM EST 10/10/2024 8:22 AM EST Narrative [facility] - 10/10/2024 8:53 AM EST Cholesterol Reference Ranges (U.S. Department of Health and Human Services ATP III Classifications) Desirable <200 mg/dL Borderline High 200-239 mg/dL High Risk >240 mg/dL Triglyceride Reference Ranges (U.S. Department of Health and Human Services ATP III Classifications) Normal <150 mg/dL Borderline High 150-199 mg/dL High 200-499 mg/dL Very High >500 mg/dL HDL Reference Ranges (U.S. Department of Health and Human Services ATP III Classifications) Low <40 mg/dl (major risk factor for CHD) High >60 mg/dl ('negative' risk factor for CHD) LDL Reference Ranges (U.S. Department of Health and Human Services ATP III Classifications) Optimal <100 mg/dL Near Optimal 100-129 mg/dL Borderline High 130-159 mg/dL High 160-189 mg/dL Very High >189 mg/dL Vania Dent APRN LAB BLOOD ORDERABLES Final Result [facility]
[address] [place] [address], from Last 3 Months or Most Recently Relevant to Health Maintenance Insurance MEDICARE A & B Member Subscriber Plan / Payer (Ef fective 2016-Present) Name:Kenia Ramírez Member ID:[id number] Relation to Subscriber:Self Name:Kenia Ramírez Subscriber ID:[id number] Payer ID:[id number] Group ID:Not on file Type:Not on file Address: [address] Care Teams Box Packer Relationship Specialty Start Date End Date Marcella Lowry APRN [address] [place] [address] PCP - General Nurse Practitioner 11/09/18
--- OUTSIDE RECORDS SUMMARY | 2025-06-03 14:58 | XMS_ITS | Referral Summary ---
Author Organization [employer] ([place], [place], [place], [place]) Address [address] [place] [address] Care Team Providers Care Licensed Home Inspector Name Role Phone Mareclla Lowry APRN Primary Care Provider [phone] Social History Tobacco Use Types Packs/Day Years Used Date Smoking Tobacco: Never Assessed Food Insecurity Answer Date Recorded Food run out past 12 months Not on file 10/09 Food did not last past 12 months Not on file 10/27/2023 Employment Answer Date Recorded Help finding and keeping a job Not on file 0 10/27/2023 Family and Community Support Answer [place] Recorded Help with Day to Day Activities Not on file 10/27/2023 Feeling Lonely or Isolated Not on file 10/27 Educational Attainment Answer Date Godfrey rded Speak language other than Estonian at home Not on file 10/27/2023 Want help with school or training Not on file 10/27/2023 Substance Use Answer Date Recorded Used prescription meds for non-medical reasons N ot on file 10/27/2023 Used illegal drugs past 12 months Not on file 10/27/2023 Comments Unknown Sex and Gender Information Value Date Recorded Sex Assigned at Not on file Legal Sex Female 7:24 PM CDT Gender Identity Not on file Sexual Orientation Not on file Plan of Treatment Not on file Procedures Procedure Name Priority Date/Time Associated Diagnosis Comments MM DIGITAL MAMMO SCREEN WITH GIOVANY BILATERAL Routine 05/23/2024 9:18 AM EDT Screening mammogram for high-risk patient from Last 3 Months or Most Recently Relevant to Health Maintenance Results * MM digital mammo screen with giovany bilateral (05/23/2024 9:18 AM EDT) Anatomical Region Laterality Modality Breast Bilateral Mammography 05/30/2024 7:46 PM EDT Impressions 05/30/2024 7:48 PM EDT No mammographic evidence of malignancy. BI-RADS CATEGORY: 2 , BENIGN FINDING(S). RECOMMENDED FOLLOW-UP: Routine annual screening mammography. A letter has been sent to the patient giving results in layperson sternotomy. : 1950 Images reviewed, interpreted, and dictated by Antoinette Cohen MD Narrative 05/30/2024 7:48 PM EDT BILATERAL SCREENING DIGITAL MAMMOGRAPHY CLINICAL INDICATION: Routine screening TECHNIQUE: Bilateral CC and MLO views were obtained with 2-D and 3D digital acquisitions. The study was read with the assistance of CAD. COMPARISON: Previous studies back to June 23, 2020. FINDINGS: No suspicious mass, calcifications or architectural distortion is seen. Breast parenchyma demonstrates scattered fibroglandular densities bilaterally. No change identified. Marcella Lowry DIRECTOR DIETETICS DEPARTMENT IM MAMMOGRAPHY ORDERABLES F inal Result from Last 3 Months or Most Recently Relevant to Health Maintenance Insurance MEDICARE PART A B [employer] SR SUPP Care Teams Licensed Home Inspector Relationship Specialty Start Date End Date Marcella Lowry, DIRECTOR DIETETICS DEPARTMENT PCP - General Family Medicine 12/14/22
--- OUTSIDE RECORDS SUMMARY | 2025-06-03 14:58 | XMS_ITS | Encounter Summary ---
Author Organization [employer] ([place], [place], [place], [place]) Address [address] [place] [address] Care Team Providers Care Jewelry Bearing Maker Name Role Phone Marcella Lowry APRN Primary Care Provider [phone] Reason for Referral * Mammography (Routine) - Closed Specialty Diagnoses / Procedures Referred By Contpeewee t Referred To Contact Diagnoses Visit for screening mammogram Procedures MM digital mammo screen bilateral Marcella Lowry APRN Phone: tel: fax: Referral ID Status Reason Start Date Expiration Date Visits Re quested Visits Authorized [id number] Closed 12/05/2022 06/03/2023 1 1 Encounter Details Date Type Department Care Team (Late st Contact Info) Description 12/05/2022 Outside Orders [facility] Central Scheduling [address] [place] [address] Marcella Lowry APRN [address] [place], [place] [id number] Visit for screening mammogram (Primary Dx) Social History Tobacco Use Types Packs/Day Years Used Date Smoking Tobacco: Never Assessed Comments Unknown Sex and Gender Information Value Date Recorded Sex Assigned at Not on file Legal Sex Female 7:24 PM CDT Gender Identity Not on file Sexual Orientation Not on file documented as of this encounter Plan of Treatment Not on file documented as of this encounter Visit Diagnoses Diagnosis Visit for screening mammogram- Primary documented in this encounter Care Teams Jewelry Bearing Maker Relationship Specialty Start Date End Date Marcella Lowry APRN PCP - General Family Medicine 12/14/22 documented as of this encounter
--- OUTSIDE RECORDS SUMMARY | 2025-06-03 14:58 | XMS_ITS | Clinical Summary ---
Author Organization [employer] ([place], [place], [place], [place]) Address [address] [place] [address] Care Team Providers Care Afloat Cryptologic Manager Name Role Phone Marcella Lowry APRN Primary Care Provider [phone] Social History Tobacco Use Types Packs/Day Years [...] Date Godfrey rded Speak language other than Portuguese at home Not on file 10/27/2023 Want [...] Orientation Not on file Plan of Treatment Health Maintenance Due Date Last Done Comments Medicare Initial AWV [id number] CT Colonography 1950 Colonoscopy 1950 Colorectal Cancer Screening 1950 DXA SCAN 1950 FOBT/FIT 1951 Fit-DNA (Cologuard) 1951 Sigmoidoscopy 1951 Depression Screening (12+) 1963 Tobacco Cessation Counseling and Screening (12+) 1963 Hepatitis C Screening 1969 DTAP/TDAP/TD VACCINES (1 - Tdap) 1970 Shingles Vaccine (Zoster) (1 of 2) 2001 COVID-19 VACCINE (5 - 2023-2 5 season) 2024 08/02/2023, 08/27/2021, 12/31/2020, Additional history exists Falls Risk Screening 10/09/2024 Influenza Vaccine (#1) 2025 3, 07/22/2022, 07/30/2021, Additional history exists Breast Cancer Screening 05/23/2026 05/23/20 24, 01/18/2023, 01/18/2023 Respiratory Syncytial Virus (RSV) Adult or (1 - 1-dose 75+ series) 2026 Pneumococcal 50+ years Completed 09/17/2018, 2016 Procedures Procedure Name Priority Date/Time Associated Diagnosis [...] densities bilaterally. No change identified. Marcella Lowry APRN IMG MAMMOGRAPHY ORDERABLES F inal Result from Last 3 Months or Most Recently Relevant to Health Maintenance Insurance MEDICARE PART [place] [address] Care Teams Afloat Cryptologic Manager Relationship Specialty Start Date End Date Marcella Lowry, DUONG PCP - General Family Medicine 12/14/22
--- OUTSIDE RECORDS SUMMARY | 2025-06-03 14:58 | XMS_ITS | Encounter Summary ---
Author Organization [employer] ([place], [place], [place], [place]) Address [address] [place] [address] Care Team Providers Care Bulb Filler Name Role Phone Marcella Lowry APRN Primary Care Provider [phone] Reason for Referral * Mammography (Routine) - Closed Specialty Diagnoses / Procedures Referred By Johnny t Referred To Contact Diagnoses Visit for screening mammogram Procedures MM digital mammo screen bilateral Marcella Lowry APRN Phone: tel: fax: Referral ID Status Reason Start Date Expiration Date Visits Re quested Visits Authorized [id number] Closed 01/05/2023 07/04/2023 1 1 Encounter Details Date Type Department Care Team (Late st Contact Info) Description 01/05/2023 Outside Orders [facility] Central Scheduling [address] [place] [address] Marcella Lowry APRN [address] [place], [place] [id number] Visit for screening mammogram (Primary Dx) Social History Tobacco Use Types Packs/Day Years Used Date Smoking Tobacco: Never Assessed Comments Unknown Sex and Gender Information Value Date Recorded Sex Assigned at Not on file Legal Sex Female 7:24 PM CDT Gender Identity Not on file Sexual Orientation Not on file COVID-19 Exposure Response Date Recorded In the last 10 days, have yo u been in contact with someone who was confirmed or suspected to have Coronavirus/COVID-19? No / Unsure 12/14/2022 10:54 AM EST documented as of this encounter Plan of Treatment Not on file documented as of this encounter Results * MM digital mammo screen bilateral (01/18/2023 10:27 AM EDT) Anatomical Region Laterality Modality Breast Bilateral Mammography 01/18/2023 12:1 6 PM EDT Impressions 01/18/2023 12:18 PM EDT FINAL IMPRESSION: ACR BI-RADS 1: Negative. RECOMMENDATIONS: Routine annual screening mammography. A letter including results and recommendations was sent to the patient. Density notification was provided to patients with type 3 or 4 breast tissue pattern. Patient information entered into a reminder system with a target due date for the next mammogram. At our facility, a [place] marker is positioned over a visible skin lesion and a linear marker is used to indicate a scar. A triangular marker is placed on a self reported palpable finding. Note: Mammography does not detect approximately 10-15% of breast cancers. An annual clinical breast exam by the patient's breast care physician and regular monthly self breast exams by the patient are integral parts of breast cancer screening, in addition to annual mammography. A normal mammogram does not completely exclude the presence of breast cancer, especially if there is an abnormal finding on physical exam. When clinically indicated, a biopsy should not be deferred because of a normal mammogram report. cc: Narrative 01/18/2023 12:18 PM EDT PROCEDURE: Bilateral digital screening mammogram. REASON FOR EXAM: Routine screening. FAMILY HISTORY: No family history of breast cancer COMPARISON STUDY: [facility] 2019 and 2021, [facility] 2019 FINDINGS: Craniocaudal and mediolateral oblique images of both breasts were obtained. Bilateral XCCL views also performed. The breast tissue is almost entirely fatty. There is no evidence of dominant mass, architectural distortion, or suspicious calcifications. No significant interval change noted. This examination was reviewed with the benefit of computer-aided detection (CAD). Marcella Lowry APRN IMG MAMMOGRAPHY ORDERABLES F inal Result documented in this encounter Visit Diagnoses Diagnosis Visit for screening mammogram- Primary Visit for screening mammogram documented in this encounter Care Teams Bulb Filler Relationship Specialty Start Date End Date Marcella Lowry APRN PCP - General Family Medicine 12/14/22 documented as of this encounter
--- OUTSIDE RECORDS SUMMARY | 2025-06-03 14:58 | XMS_ITS | Encounter Summary ---
Author Organization [employer] ([place], [place], [place], [place]) Address [address] [place] [address] Care Team Providers Care Storekeeper Engineering Name Role Phone Marcella Lowry APRN Primary Care Provider [phone] Reason for Referral * Mammography (Routine) - Closed Specialty Diagnoses / Procedures Referred By Contpeewee t Referred To Contact Diagnoses Screening mammogram for high-risk patient Procedures MM digital mammo screen with marina bilateral Marcella Lowry APRN [address] [place] [address] Phone: tel: fax: Referral ID Status Reason Start Date Expiration Date Visits Re quested Visits Authorized [id number] Closed 03/29/2024 03/29/2025 1 1 Encounter Details Date Type Department Care Team (Late st Contact Info) Description 03/29/2024 Outside Orders [facility] Central Scheduling [address] [place] [address] Marcella Lowry, DUONG [address] [place], [place] [id number] Screening mammogram for high-risk patient (Primary Dx) Social History Tobacco Use Types [...] Date Godfrey rded Speak language other than Congolese at home Not on file 10/27/2023 Want [...] encounter Results * MM digital mammo screen with marina bilateral (05/23/2024 9:18 AM EDT) Anatomical Region [...] documented in this encounter Visit Diagnoses Diagnosis Screening mammogram for high-risk patient- Primary Screening mammogram for high-risk patient documented in this encounter Care Teams Storekeeper Engineering Relationship Specialty Start Date End Date Marcella Lowry APRN PCP - General Family Medicine 12/14/22 documented as of this encounter
--- OUTSIDE RECORDS SUMMARY | 2025-06-03 14:58 | XMS_ITS | Encounter Summary ---
[facility] Organization [facility] Address [address] [place] [address] Care Team Providers Care Crystal Grower Name Role Phone Marcella Lowry APRN Primary Care Provider [phone] Encounter Details Date Type Department Care Team (Late st Contact Info) Description 05/12/2025 Telephone [facility] [address] [place] [address] Antoinette Jones APRN [address] [place], [place] [id number] Social History Tobacco Use Types Packs/Day Years [...] on file documented as of this encounter Miscellaneous Notes * Telephone Encounter - Kadie Damon RegSched Rep - 05/12/2025 1:13 PM EDT Summary: STATUS OF NEW PAP MACHINE PATIENT HAD CALLED IN WANTING TO KNOW THE STATUS OF HER NEW MACHINE. I CALLED AND SPOKE WITH MARY JO GARCÍA AND SHE INFORMED ME THAT INSURANCE STATED THAT PT RECEIVED HER MACHINE ON 12.22.20 AND THEY ONLY COVER A PAP MACHINE EVERY 5 YEARS, SO SHE ISN'T ELIGIBLE FOR A NEW ONE UNTIL 12.22.2025. ADVISED PATIENT. documented in this encounter Plan of Treatment Upcoming Encounters Date Type Department Care Team (Late st Contact Info) Description 11/06/2025 10:30 AM EST Office Visit [facility] [address] [place] [address] Antoinette Jones APRN [address] [place] [address] [place] [address] documented as of this encounter Visit Diagnoses Not on filedocumented in this encounter Care Teams Crystal Grower Relationship Specialty Start Date End Date Marcella Lowry APRN [address] [place] [address] PCP - General Nurse Practitioner 11/09/18 documented as of this encounter
== END 2025-06-03 23:59 | disposition home or self-care (01) ==
LOC: RAD 14:56
PROVIDERS: PCP Nurse Practitioner Family; Visit Provider Nurse Practitioner Family
DX: M51.369 Other intervertebral disc degeneration, lumbar region without mention of lumbar back pain or lower extremity pain (principal); M48.062 Spinal stenosis, lumbar region with neurogenic claudication
CPT/HCPCS: 72148